=== PATIENT | female | born 1960 | race Caucasian/White ===

== ENCOUNTER 2017-11-04 00:20 | Emergency (ER) | payer OTHER ==
[2017-11-04] MEDS ORDERED: Albuterol 0.083% 2.5 MG/3 ML Neb Soln NEB ONE (00:56)
--- NOTE | 2017-11-04 01:12 | EDM.PDOC ---
ED HPI GENERAL MEDICAL PROBLEM - General Chief Complaint: Respiratory Problem Stated Complaint: SOB Time Seen by Provider: 11/04/17 01:12 Source of Information: Reports: Patient, Family History Limitations: Reports: No Limitations - History of Present Illness INITIAL COMMENTS - FREE TEXT/NARRATIVE: pt arrived with increased sob. She has been on zithromax and has one tablet left. She has had tesslon perles. She has not had a fever. Onset: Gradual Duration: Day(s):, Getting Worse Location: Reports: Chest Associated Symptoms: Reports: Cough, Other (pt is raising some colored sputum. ) - Related Data Allergies Allergy/AdvReac Type Severity Reaction Status Date / Time acetaminophen [From Vicodin] Allergy Hallucinati Verified 11/04/17 00:41 ons bee venom protein (honey bee) Allergy Hives Verified 11/04/17 00:41 codeine [From Robitussin A-C] Allergy Hives Verified 11/04/17 00:41 guaifenesin Allergy Hives Verified 11/04/17 00:41 [From Robitussin A-C] hydrocodone [From Vicodin] Allergy Hallucinati Verified 11/04/17 00:41 ons Home Meds: Home Meds Azithromycin [Zithromax] 250 mg PO ASDIRECTED 11/04/17 [History] Benzonatate 100 mg PO TID 11/04/17 [History] EPINEPHrine [Epipen] 0.3 mg INJECT ASDIRECTED 11/04/17 [History] Omeprazole Magnesium [Prilosec Otc] 20 mg PO DAILY 11/04/17 [History] Past Medical History HEENT History: Reports: Impaired Vision Gastrointestinal History: Reports: 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: Musculoskeletal History: Reports: Back Pain, Chronic Neurological History: Reports: Migraines Endocrine/Metabolic History: Reports: Obesity/BMI 30+ - Past Surgical History GI Surgical History: Reports: Cholecystectomy Musculoskeletal Surgical History: Reports: Arthroscopic Knee, Other (See Below) Other Musculoskeletal Surgeries/Procedures:: back surgery Social & Family History - Tobacco Use Smoking Status *Q: Never Smoker - Recreational Drug Use Recreational Drug Use: No ED ROS GENERAL - Review of Systems Review Of Systems: See Below Constitutional: Reports: Weakness HEENT: Reports: No Symptoms Respiratory: Reports: Shortness of Breath, Wheezing, Cough Cardiovascular: Reports: No Symptoms Endocrine: Reports: No Symptoms GI/Abdominal: Reports: No Symptoms : Reports: No Symptoms Musculoskeletal: Reports: No Symptoms Skin: Reports: No Symptoms Neurological: Reports: No Symptoms Psychiatric: Reports: No Symptoms ED EXAM, GENERAL - Physical Exam Exam: See Below Free Text/Narrative:: pt arrived with marked coughing. She has been feeling sob. She has no chest pain. Exam Limited By: No Limitations General Appearance: Alert, Anxious, Moderate Distress Ears: Normal TMs Nose: Normal Inspection Throat/Mouth: Normal Inspection Head: Atraumatic Neck: Normal Inspection Respiratory/Chest: Decreased Breath Sounds, Wheezing Cardiovascular: Regular Rate, Rhythm, Tachycardia GI/Abdominal: Soft, Non-Tender (Female) Exam: Deferred Rectal (Female) Exam: Deferred Back Exam: Normal Inspection Extremities: Normal Inspection Neurological: Alert, Oriented, Normal Cognition Psychiatric: Normal Affect Course - Vital Signs Last Recorded V/S: Last Vital Signs Temp 36.1 C 11/04/17 00:44 Pulse 77 11/04/17 00:44 Resp 22 H 11/04/17 00:44 BP 128/72 11/04/17 00:44 Pulse Ox 97 11/04/17 00:44 - Orders/Labs/Meds Orders: Active Orders 24 hr Category Date Time Status RT Aerosol Therapy [RC] ASDIRECTED Care 11/04/17 00:56 Active Chest 1V Frontal [CR] Stat Exams 11/04/17 00:58 Taken Labs: Laboratory Tests 11/04/17 Range/Units 00:57 WBC 12.0 H (4.5-11.0) K/uL RBC 5.05 (3.30-5.50) M/uL Hgb 13.5 (12.0-15.0) g/dL Hct 41.4 (36.0-48.0) % MCV 82 (80-98) fL MCH 27 (27-31) pg MCHC 33 (32-36) % Plt Count 314 (150-400) K/uL Neut % (Auto) 65 (36-66) % Lymph % (Auto) 24 (24-44) % [place] % (Auto) 8 H (2-6) % Eos % (Auto) 3 (2-4) % Baso % (Auto) 0 (0-1) % Meds: Medications Discontinued Medications Generic Name Dose Route Start Last Admin Trade Name Freq PRN Reason Stop Dose Admin Albuterol 2.5 mg 08/23/18 00:56 11/04/17 01:03 Proventil Neb Soln NEB 11/04/17 00:57 2.5 mg ONETIME ONE Administration Triamcinolone Acetonide 60 mg 11/04/17 01:45 Kenalog-40 INJECT 11/04/17 01:46 ASDIRECTED ONE - Re-Assessments/Exams Free Text/Narrative Re-Assessment/Exam: 11/04/17 01:50 pt was given a neb which did help some She had a chest xray which did not reveal a a infiltrate. She has only a mildly elevated wbc. 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 - My Orders Last 24 Hours: My Active Orders 11/04/17 00:56 RT Aerosol Therapy [RC] ASDIRECTED 11/04/17 00:58 Chest 1V Frontal [CR] Stat - Assessment/Plan Last 24 Hours: My Active Orders 11/04/17 00:56 RT Aerosol Therapy [RC] ASDIRECTED 11/04/17 00:58 Chest 1V Frontal [CR] Stat
[2017-11-04] MEDS ORDERED: Triamcinolone Acetonide 40 MG/ML 1 ML MDV INJECT ONE (01:45)
--- NOTE | 2017-11-04 08:58 | CR ---
CHEST: Portable CLINICAL HISTORY:SOB COMPARISON:None FINDINGS: Heart size and pulmonary vascularity are normal. No infiltrate effusion or pneumothorax is seen Impression: No acute cardiopulmonary process.
== END 2017-11-04 02:26 | disposition home or self-care (01) ==
LOC: JP.ED 00:20
DX: J98.01 Acute bronchospasm (principal); J40 Bronchitis, not specified as acute or chronic; K21.9 Gastro-esophageal reflux disease without esophagitis; Z79.899 Other long term (current) drug therapy; Z88.6 Allergy status to analgesic agent; Z91.030 Bee allergy status; Z88.5 Allergy status to narcotic agent
CPT/HCPCS: 36415; 71045; 85025; 94640; 99285; J3301